=== PATIENT | female | born 1940 | race Caucasian/White ===

== ENCOUNTER 2018-05-02 14:58 | Emergency (ER) | payer MEDICARE, MEDICAID ==
[2018-05-02 15:45] LABS: URINE BLOOD (Dip) POC 1+ (NEGATIVE); URINE GLUCOSE (Dip) POC Negative (NEGATIVE); URINE KETONES (Dip) POC Negative (NEGATIVE); URINE LEUKOCYTE EST (Dip) POC Trace (NEGATIVE); URINE NITRITE (Dip) POC Negative (NEGATIVE); URINE TOTAL PROTEIN POC Negative (NEGATIVE)
[2018-05-02] MEDS: IBUPROFEN 800 MG TAB PO ×2 (15:59→16:04)
[2018-05-02] MEDS: LOPERAMIDE HCL 1 MG/5 ML LIQUID (10 ML UD CUP) PO (15:59)
[2018-05-02] MEDS: ONDANSETRON (ODT) 4 MG TAB ODT ×2 (15:59→16:04)
== END 2018-05-02 17:00 | disposition home or self-care (01) ==
LOC: E/R 14:58
DX: R11.10 Vomiting, unspecified (principal); R19.7 Diarrhea, unspecified; R10.30 Lower abdominal pain, unspecified; I10 Essential (primary) hypertension
CPT/HCPCS: 81003; 99283